=== PATIENT | male | born 1980 | race Two or more races ===

== ENCOUNTER 2016-06-04 18:39 | Emergency (ER) | payer OTHER ==
[~2016-06-04] VITALS: Ht 177.8 cm; Wt 117.9 kg
[2016-06-04 21:37] VITALS: BP 132/90
[2016-06-04] MEDS ORDERED: ACETAMINOPHEN/CODEINE#3 (300/30mg) TAB PO ONE (22:15)
== END 2016-06-04 22:32 | disposition home or self-care (01) ==
LOC: ER 18:41
DX: S50.01XA Contusion of right elbow, initial encounter (principal); F17.210 Nicotine dependence, cigarettes, uncomplicated; F12.10 Cannabis abuse, uncomplicated; W11.XXXA Fall on and from ladder, initial encounter; Y93.89 Activity, other specified; Y99.9 Unspecified external cause status; Y92.89 Other specified places as the place of occurrence of the external cause
CPT/HCPCS: 73080